=== PATIENT | male | born 1995 | race Caucasian/White ===

== ENCOUNTER 2016-11-06 05:02 | Emergency (ER) | payer MEDICAID ==
[~2016-11-06] VITALS: Ht 180.3 cm; Wt 79.4 kg
[2016-11-06] MEDS ORDERED: VIBRAMYCIN 100100 MG PO (05:22)
[2016-11-06] MEDS ORDERED: CLEOCIN HCL150 MG PO (05:22)
[2016-11-06 05:30] LABS: HEMATOCRIT 39.6 % (42.0-52.0); HEMOGLOBIN 13.7 gm/dL (14.0-18.0); MCH 33.4 pg (26.0-34.0); MCHC 34.6 g/dL (28.0-37.0); MCV 96.5 fL (80.0-100.0); RBC 4.1 mil/uL (4.50-6.00); RDW 12.4 % (10.5-14.5); WBC 7.6 thou/uL (4.0-11.0)
[2016-11-06] MEDS ORDERED: AMPHETAMINE SAL10 MG PO (05:46)
[2016-11-06] MEDS ORDERED: CELEXA20 MG PO (05:46)
[2016-11-06 06:42] VITALS: BP 120/72
== END 2016-11-06 06:43 | disposition home or self-care (01) ==
LOC: ER 05:02
PROVIDERS: Emergency Medicine
DX: S51.811A Laceration without foreign body of right forearm, initial encounter (principal); F10.99 Alcohol use, unspecified with unspecified alcohol-induced disorder; S01.351A Open bite of right ear, initial encounter; Y04.1XXA Assault by human bite, initial encounter; Y93.89 Activity, other specified; Y92.89 Other specified places as the place of occurrence of the external cause; Y99.8 Other external cause status